=== PATIENT | male | born 1960 | race Caucasian/White ===

== ENCOUNTER 2024-02-07 09:35 | Outpatient (CLI) | payer OTHER | END 2024-02-07 21:18 | disposition home or self-care (01) | LOC: SNM 09:35 | PROVIDERS: ATTEND Internal Medicine | DX: K21.9 Gastro-esophageal reflux disease without esophagitis (principal); R10.13 Epigastric pain; R11.0 Nausea; Z86.010 Personal history of colon polyps; K76.0 Fatty (change of) liver, not elsewhere classified; Z80.0 Family history of malignant neoplasm of digestive organs | CPT/HCPCS: 78264; A9541 ==